=== PATIENT | female | born 1985 | race Hispanic/Latino ===

== ENCOUNTER 2021-01-27 12:39 | Emergency (ER) | payer MEDICAID ==
[2021-01-27] MEDS ORDERED: ACETAMINOPHEN 500 MG TAB PO STA (13:40)
--- NOTE | 2021-01-27 13:48 | Emergency Department Report ---
ED General Adult HPI - General Chief complaint: Vaginal Bleeding Stated complaint: MISCARRIAGE/FIBROIDS Time Seen by Provider: 01/27/21 13:22 Source: patient Mode of arrival: Ambulatory Limitations: No Limitations - History of Present Illness Initial comments: 35-year-old female patient presents with complaints of vaginal bleeding in starting last night. She states she is approximately 7 weeks and currently follows with [facility] HAT MEASURER. Patient states her beta hCG levels recently declined from 24,000-8000 in the last week. She admits to abdominal cramping and states she has passed 2 large blood clots. She is G2, . No other past medical history per patient. She denies any urinary symptoms or vaginal discharge/dyspareunia. - Related Data Previous Rx's Medication Instructions Recorded Last Taken Type Sulfamethoxazole/Trimethoprim 1 each PO BID 5 Days #10 tablet 01/27/21 Unknown Rx [Bactrim DS TAB] Allergies Allergy/AdvReac Type Severity Reaction Status Date / Time No Known Allergies Allergy Unverified 01/27/21 13:08 ED Review of Systems ROS: Stated complaint: MISCARRIAGE/FIBROIDS Other details as noted in HPI Constitutional: denies: chills, fever Respiratory: denies: cough, shortness of breath Gastrointestinal: abdominal pain. denies: nausea, vomiting, diarrhea, constipation, hematemesis, melena, hematochezia Genitourinary: abnormal menses. denies: urgency, dysuria, frequency, hematuria, discharge, dyspareunia Skin: denies: change in color Hematological/Lymphatic: denies: easy bleeding, easy bruising ED Past Medical Hx - Past Medical History Previous Medical History?: Yes Hx Hypertension: Yes Additional medical history: Miscarriage - Surgical History Past Surgical History?: No - Social History Smoking Status: Never Smoker Substance Use Type: Alcohol, Marijuana - Medications Home Medications: Home Medications Medication Instructions Recorded Confirmed Last Taken Type Sulfamethoxazole/Trimethoprim 1 each PO BID 5 Days #10 tablet 01/27/21 Unknown Rx [Bactrim DS TAB] ED Physical Exam - General Limitations: No Limitations General appearance: alert, in no apparent distress - Head Head exam: Present: atraumatic, normocephalic - Eye Eye exam: Present: normal appearance - Neck Neck exam: Present: full ROM - Respiratory Respiratory exam: Absent: respiratory distress - Cardiovascular Cardiovascular Exam: Present: regular rate - GI/Abdominal GI/Abdominal exam: Present: soft, tenderness (Suprapubic), normal bowel sounds. Absent: distended, guarding, rebound, rigid - Neurological Exam Neurological exam: Present: alert, oriented X3, normal gait - Psychiatric Psychiatric exam: Present: normal affect, normal mood - Skin Skin exam: Present: warm, dry, intact, normal color. Absent: rash, cyanosis, diaphoretic, pallor ED Course Vital Signs 01/27/21 01/27/21 01/27/21 13:10 15:50 16:03 Temperature 98.1 F 98.3 F Pulse Rate 95 H 63 Respiratory 20 12 Rate Blood Pressure 154/92 Blood Pressure 123/63 [Left] O2 Sat by Pulse 100 100 100 Oximetry ED Medical Decision Making - Lab Data Result diagrams: 01/27/21 13:37 01/27/21 13:37 Lab Results 01/27/21 01/27/21 01/27/21 Range/Units 13:37 13:37 13:37 WBC 16.0 H (4.5-11.0) K/mm3 RBC 4.62 (3.65-5.03) M/mm3 Hgb 11.5 (10.1-14.3) gm/dl Hct 35.2 (30.3-42.9) % MCV 76 L (79-97) fl MCH 25 L (28-32) pg MCHC 33 (30-34) % RDW 18.8 H (13.2-15.2) % Plt Count 319 (140-440) K/mm3 Lymph % (Auto) 11.0 L (13.4-35.0) % [place] % (Auto) 3.5 (0.0-7.3) % Eos % (Auto) 0.5 (0.0-4.3) % Baso % (Auto) 0.5 (0.0-1.8) % Lymph # (Auto) 1.8 (1.2-5.4) K/mm3 [place] # (Auto) 0.6 (0.0-0.8) K/mm3 Eos # (Auto) 0.1 (0.0-0.4) K/mm3 Baso # (Auto) 0.1 (0.0-0.1) K/mm3 Seg Neutrophils % 84.5 H (40.0-70.0) % Seg Neutrophils # 13.5 H (1.8-7.7) K/mm3 Sodium 140 (137-145) mmol/L Potassium 3.7 (3.6-5.0) mmol/L Chloride 106.0 (98-107) mmol/L Carbon Dioxide 22 (22-30) mmol/L Anion Gap 16 mmol/L BUN 9 (7-17) mg/dL Creatinine 0.5 L (0.6-1.2) mg/dL Estimated GFR > 60 ml/min BUN/Creatinine Ratio 18 % Glucose 127 H (65-100) mg/dL Calcium 9.2 (8.4-10.2) mg/dL Total Bilirubin < 0.20 (0.1-1.2) mg/dL AST 13 (5-40) units/L ALT 13 (7-56) units/L Alkaline Phosphatase 76 (35-129) units/L Total Protein 7.2 (6.3-8.2) g/dL Albumin 4.1 (3.9-5) g/dL Albumin/Globulin Ratio 1.3 % HCG, Quant 3699 H (0-4) mIU/mL Blood Type 01/27/21 Range/Units 13:37 WBC (4.5-11.0) K/mm3 RBC (3.65-5.03) M/mm3 Hgb (10.1-14.3) gm/dl Hct (30.3-42.9) % MCV (79-97) fl MCH (28-32) pg MCHC (30-34) % RDW (13.2-15.2) % Plt Count (140-440) K/mm3 Lymph % (Auto) (13.4-35.0) % [place] % (Auto) (0.0-7.3) % Eos % (Auto) (0.0-4.3) % Baso % (Auto) (0.0-1.8) % Lymph # (Auto) (1.2-5.4) K/mm3 [place] # (Auto) (0.0-0.8) K/mm3 Eos # (Auto) (0.0-0.4) K/mm3 Baso # (Auto) (0.0-0.1) K/mm3 Seg Neutrophils % (40.0-70.0) % Seg Neutrophils # (1.8-7.7) K/mm3 Sodium (137-145) mmol/L Potassium (3.6-5.0) mmol/L Chloride (98-107) mmol/L Carbon Dioxide (22-30) mmol/L Anion Gap mmol/L BUN (7-17) mg/dL Creatinine (0.6-1.2) mg/dL Estimated GFR ml/min BUN/Creatinine Ratio % Glucose (65-100) mg/dL Calcium (8.4-10.2) mg/dL Total Bilirubin (0.1-1.2) mg/dL AST (5-40) units/L ALT (7-56) units/L Alkaline Phosphatase (35-129) units/L Total Protein (6.3-8.2) g/dL Albumin (3.9-5) g/dL Albumin/Globulin Ratio % HCG, Quant (0-4) mIU/mL Blood Type A POSITIVE - Radiology Data Radiology results: report reviewed ULTRASOUND OBSTETRIC INDICATION / CLINICAL INFORMATION: bleeding, 7 weeks . Serum hCG = 3699. Clinical Gestational Age (GA) in weeks, days: 6, 4 TECHNIQUE: Transabdominal and Transvaginal. COMPARISON: None available. FINDINGS: GESTATIONAL SAC: No intrauterine gestational sac. YOLK SAC: None visualized. EMBRYO/FETUS: None visualized. UTERUS: Uterus is enlarged and heterogeneous measuring 12.7 x 8.0 x 9.6 cm. Multiple intramural fibroids are present measuring up to 5.6 cm in size. ADNEXA: Ovary not well visualized. No adnexal mass or cyst. FREE FLUID: None. ADDITIONAL FINDINGS: None. IMPRESSION: 1. No intrauterine identified. 2. Enlarged uterus containing multiple fibroids. - Medical Decision Making 35-year-old female patient presents with complaints of vaginal bleeding in starting last night. She states she is approximately 7 weeks and currently follows with [facility]. Patient states her beta hCG levels recently declined from 24,000-8000 in the last week. She admits to abdominal cramping and states she has passed 2 large blood clots. She is G2, . No other past medical history per patient. She denies any urinary symptoms or vaginal discharge/dyspareunia. Patient also reports she had an ultrasound at 5 weeks and that the was noted to be an IUP Critical care attestation.: If time is entered above; I have spent that time in minutes in the direct care of this critically ill patient, excluding procedure time. ED Disposition Clinical Impression: Miscarriage, UTI (urinary tract infection) Disposition: 01 HOME / SELF CARE / HOMELESS Is pt being admited?: No Condition: Stable Instructions: Miscarriage Additional Instructions: Please follow-up with your HAT MEASURER within 2 to 3 days Prescriptions: Sulfamethoxazole/Trimethoprim [Bactrim DS TAB] 1 each PO BID 5 Days #10 tablet Referrals: PRIMARY CARE, [Primary Care Provider] - 3-5 Days Forms: Work/School Release Form(ED)
[2021-01-27 14:16] LABS: Basophils # (Auto) 0.1 K/mm3 (0.0-0.1); Basophils % (Auto) 0.5 % (0.0-1.8); Eosinophils # (Auto) 0.1 K/mm3 (0.0-0.4); Eosinophils % (Auto) 0.5 % (0.0-4.3); Hematocrit 35.2 % (30.3-42.9); Hemoglobin 11.5 gm/dl (10.1-14.3); Lymphocytes # (Auto) 1.8 K/mm3 (1.2-5.4); Mean Corpuscular HGB Conc 33 % (30-34); Mean Corpuscular Volume 76 fl (79-97); Monocytes # (Auto) 0.6 K/mm3 (0.0-0.8); Monocytes % (Auto) 3.5 % (0.0-7.3); Platelet Count 319 K/mm3 (140-440); Red Blood Count 4.62 M/mm3 (3.65-5.03); Red Cell Distribution Width 18.8 % (13.2-15.2)
[2021-01-27 14:25] LABS: Alanine Aminotransferase 13 units/L (7-56); Albumin 4.1 g/dL (3.9-5); Blood Urea Nitrogen 9 mg/dL (7-17); Calcium 9.2 mg/dL (8.4-10.2); Hemolysis Index 2
[2021-01-27 14:31] LABS: BUN/Creatinine Ratio 18
[2021-01-27] MEDS ORDERED: ONDANSETRON 4 MG ODT TAB PO ONE (15:04)
[2021-01-27] MEDS ORDERED: MORPHINE 4 MG/1 ML INJ IM ONE (15:04)
--- NOTE | 2021-01-27 15:36 | Ultrasound Report ---
ULTRASOUND OBSTETRIC INDICATION / CLINICAL INFORMATION: bleeding, 7 weeks . Serum hCG = 3699. Clinical Gestational Age (GA) in weeks, days: 6, 4 TECHNIQUE: Transabdominal and Transvaginal. COMPARISON: None available. FINDINGS: GESTATIONAL SAC: No intrauterine gestational sac. YOLK SAC: None visualized. EMBRYO/FETUS: None visualized. UTERUS: Uterus is enlarged and heterogeneous measuring 12.7 x 8.0 x 9.6 cm. Multiple intramural fibro ids are present measuring up to 5.6 cm in size. ADNEXA: Ovary not well visualized. No adnexal mass or cyst. FREE FLUID: None. ADDITIONAL FINDINGS: None. IMPRESSION: 1. No intrauterine identified. 2. Enlarged uterus containing multiple fibroids. Signer Name: Blanco Godinez MD Signed: 01/27/2021 3:31 PM Workstation Name: [id number]
[2021-01-27] MEDS ORDERED: KETOROLAC 30 MG/1 ML INJ IV ONE (16:10)
[2021-01-27 16:23] LABS: Bilirubin,Urine NEG (Negative); Blood,Urine LG (Negative); Color,Urine Red (Yellow); Mucus,Urine 1+ /HPF
[2021-01-27 16:25] LABS: RBC,Urine > 180.0 /HPF (0.0-6.0)
[2021-01-27 17:32] VITALS: BP 123/65
== END 2021-01-27 16:45 | disposition home or self-care (01) ==
LOC: ED 12:39
DX: O03.9 Complete or unspecified spontaneous abortion without complication (principal); O16.1 Unspecified maternal hypertension, first trimester; O23.41 Unspecified infection of urinary tract in pregnancy, first trimester
CPT/HCPCS: 36415; 76801; 76817; 80053; 81001; 84702; 85025; 86900; 86901; 87086; 96372; 96374; 99284; J1885; J2270; Q0162

== ENCOUNTER 2021-01-30 13:46 | Emergency (ER) | payer MEDICAID ==
[2021-01-30 14:10] VITALS: BP 150/84
[2021-01-30] MEDS ORDERED: SODIUM CHLORIDE 0.9% 1000 ML 1,000 ML IV ONE (14:17)
[2021-01-30] MEDS ORDERED: HYDROcodone/ACETAMINOPHEN 5-325 MG TAB PO ONE (14:17)
--- NOTE | 2021-01-30 14:18 | Event Note ---
ED Screening Note ED Screening Note: RN called me to triage Pt was in rest room and "passed something"- which she flushed recently here for vag bleed in preg- us noted large fibroids tachycardia/abd pain RN took pt to fast track This initial assessment/diagnostic orders/clinical plan/treatment(s) is/are subject to change based on patients health status, clinical progression and re- assessment by fellow clinical providers in the ED. Further treatment and workup at subsequent clinical providers discretion. Patient/guardian urged not to elope from the ED as their condition may be serious if not clinically assessed and managed. Initial orders include: ro ab/retained product/fibroid/DUB RH pos on last visit SEE EMR
--- NOTE | 2021-01-30 14:46 | Emergency Department Report ---
HPI - General Chief Complaint: Vaginal Bleeding Time Seen by Provider: 01/30/21 14:16 - HPI HPI: 35-year-old female presents to the emergency department with heavy vaginal bleeding and some pelvic cramping after a recent miscarriage. Patient came in to this emergency department 3 days ago, on 01/27, with the same complaints of vaginal bleeding and pelvic cramping while at 7 weeks . The patient's beta hCG had gone from about 24,000 down to 8000. During her last visit the beta-hCG was about 3700. She had a ultrasound done at that time that did not show any intrauterine and showed fibroid disease. The patient was discharged home with the diagnosis of a miscarriage and a urinary tract infection. The patient presents today still complaining of the vaginal bleeding and pelvic cramping. She says that she is going through multiple pads per hour. She follows with [facility] TECHNICIAN. ED Past Medical Hx - Past Medical History Hx Hypertension: Yes Additional medical history: Miscarriage - Social History Smoking Status: Never Smoker Substance Use Type: Alcohol, Marijuana - Medications Home Medications: Home Medications Medication Instructions Recorded Confirmed Last Taken Type HYDROcodone/APAP 5-325 [[place] 1 each PO Q6HR PRN #8 tablet 01/30/21 Unknown Rx 5/325] Sulfamethoxazole/Trimethoprim 1 each PO BID 5 Days #10 tablet 01/30/21 Unknown Rx [Bactrim DS TAB] ED Review of Systems ROS: Stated complaint: VAGINAL BLEEDING Other details as noted in HPI Comment: All other systems reviewed and negative Constitutional: denies: chills, fever Eyes: denies: eye pain, vision change ENT: denies: ear pain, throat pain Respiratory: denies: cough, shortness of breath Cardiovascular: denies: chest pain, palpitations Gastrointestinal: denies: nausea, vomiting Genitourinary: other (pelvic cramping, heavy vaginal bleeding) Musculoskeletal: denies: back pain, arthralgia Skin: denies: rash, lesions Neurological: denies: headache, weakness Physical Exam - Physical Exam Vital Signs: Vital Signs 01/30/21 14:07 Temperature 98.4 F Pulse Rate 106 H Respiratory 16 Rate Blood Pressure 150/84 O2 Sat by Pulse 90 Oximetry Physical Exam: GENERAL: The patient is well-developed well-nourished. HENT: Normocephalic. Atraumatic. Patient has moist mucous membranes. EYES: Extraocular motions are intact. NECK: Supple. Trachea is midline. CHEST/LUNGS: Clear to auscultation. There is no respiratory distress noted. HEART/CARDIOVASCULAR: Regular. There is no tachycardia. There is no murmur. ABDOMEN: Abdomen is soft, nontender. Patient has normal bowel sounds. There is no abdominal distention. SKIN: Skin is warm and dry. NEURO: The patient is awake, alert, and oriented. The patient is cooperative. The patient has no focal neurologic deficits. Normal speech. MUSCULOSKELETAL: There is no tenderness or deformity. There is no limitation range of motion. PELVIC: Deferred ED Course Vital Signs 01/30/21 14:07 Temperature 98.4 F Pulse Rate 106 H Respiratory 16 Rate Blood Pressure 150/84 O2 Sat by Pulse 90 Oximetry - Consultations Consultation #1: 01/30/21 16:01 I spoke to the ROVING TECHNICIAN on-call, Dr. Grace. She has arranged for the patient to see her in the office tomorrow at 10:45 AM in the [facility]. She is okay with a single dose of Methergine prior to DC. ED Medical Decision Making - Lab Data Result diagrams: 01/30/21 14:34 01/30/21 14:34 Lab Results 01/30/21 01/30/21 01/30/21 Range/Units 14:34 14:34 14:34 WBC 9.2 (4.5-11.0) K/mm3 RBC 4.20 (3.65-5.03) M/mm3 Hgb 10.6 (10.1-14.3) gm/dl Hct 32.0 (30.3-42.9) % MCV 76 L (79-97) fl MCH 25 L (28-32) pg MCHC 33 (30-34) % RDW 18.7 H (13.2-15.2) % Plt Count 312 (140-440) K/mm3 Lymph % (Auto) 15.5 (13.4-35.0) % [place] % (Auto) 6.4 (0.0-7.3) % Eos % (Auto) 1.9 (0.0-4.3) % Baso % (Auto) 0.7 (0.0-1.8) % Lymph # (Auto) 1.4 (1.2-5.4) K/mm3 [place] # (Auto) 0.6 (0.0-0.8) K/mm3 Eos # (Auto) 0.2 (0.0-0.4) K/mm3 Baso # (Auto) 0.1 (0.0-0.1) K/mm3 Seg Neutrophils % 75.5 H (40.0-70.0) % Seg Neutrophils # 6.9 (1.8-7.7) K/mm3 Sodium 135 L (137-145) mmol/L Potassium 4.3 (3.6-5.0) mmol/L Chloride 100.6 (98-107) mmol/L Carbon Dioxide 27 (22-30) mmol/L Anion Gap 12 mmol/L BUN 12 (7-17) mg/dL Creatinine 0.5 L (0.6-1.2) mg/dL Estimated GFR > 60 ml/min BUN/Creatinine Ratio 24 % Glucose 108 H (65-100) mg/dL Calcium 8.5 (8.4-10.2) mg/dL HCG, Quant 1436 H (0-4) mIU/mL - Radiology Data Radiology results: report reviewed ULTRASOUND PELVIS INDICATION: vag bleed in preg. TECHNIQUE: Transabdominal. Transvaginal. Duplex Color Doppler used: Yes. COMPARISON: 01/27/2021. FINDINGS: Uterus: Present. Size: 15 x 8.4 x 9.5 cm. Endometrial complex: Not well evaluated. Mass lesions: Multiple heterogeneous lesions are again seen throughout the uterus and cervix with the largest at the cervix measuring 4.9 cm. Additional findings: None. Right Ovary -- 3.6 x 3 x 2.7 Blood flow: Normal. Cyst or mass: None. Left Ovary--nonvisualized. Urinary Bladder: Normal. Free Fluid: None. Additional Findings: None. IMPRESSION: 1. No intrauterine . 2. Limited evaluation of the uterus and endometrial stripe. Multiple fibroids are again identified with involvement of the cervix. 3. Left ovary not identified. No adnexal abnormality is identified. - Medical Decision Making This patient was here on 01/27 and was found to have a spontaneous miscarriage. She had a beta-hCG of about 3700 at that time and an ultrasound that showed no IUP and moderate to severe fibroid disease. The patient was doing better between ER visits, but last night says that she suddenly had a large amount of blood with clots come out and the patient began having the pelvic cramping again. Vital signs have been reassuring throughout her ED course including being afebrile. The patient's labs show that the beta hCG has been dropping and is now down to about 1400. Patient's hemoglobin dropped less than 1 g, down to 10.6. The rest of the labs are unremarkable. Transvaginal ultrasound does not show any IUP and once again shows fibroid disease. I spoke with the ROVING TECHNICIAN on-call who agrees with the plan for a dose of Methergine and has arranged for the patient to be seen by her in the office tomorrow, Friday, at 10:45 AM. Patient was given a prescription for pain medication. She says that she lost h er prescription for Bactrim for the previously diagnosed UTI so this was re- issued. Critical Care Time: No Critical care attestation.: If time is entered above; I have spent that time in minutes in the direct care of this critically ill patient, excluding procedure time. ED Disposition Clinical Impression: Dysfunctional uterine bleeding, Pelvic pain UTI (urinary tract infection) Qualifiers: Urinary tract infection type: acute cystitis Hematuria presence: with hematuria Qualified Code(s): N30.01 - Acute cystitis with hematuria Disposition: HOME / SELF CARE / HOMELESS Is pt being admited?: No Condition: Stable Instructions: Abnormal Uterine Bleeding, Urinary Tract Infection, Adult, Miscarriage Additional Instructions: Please follow-up with Dr. Grace tomorrow at 10:45 AM in her [place] office. You have been prescribed a medication that is sedating and therefore should not be taken prior to driving, working, and responsible for children and in no way should be mixed with alcohol of any quantity. Return to the emergency department with any worsening of your symptoms, new or concerning symptoms not addressed during this current emergency department vis it, or with any acute distress. Prescriptions: Sulfamethoxazole/Trimethoprim [Bactrim DS TAB] 1 each PO BID 5 Days #10 tablet HYDROcodone/APAP 5-325 [[place] 5/325] 1 each PO Q6HR PRN #8 tablet PRN Reason: Pain Referrals: DYLON GRACE MD [Staff Physician] - 01/31/21 10:45 am Time of Disposition: 16:12
[2021-01-30 15:09] LABS: Blood Urea Nitrogen 12 mg/dL (7-17); Calcium 8.5 mg/dL (8.4-10.2); Hemolysis Index 6
[2021-01-30 15:26] LABS: BUN/Creatinine Ratio 24
--- NOTE | 2021-01-30 15:35 | Ultrasound Report ---
ULTRASOUND PELVIS INDICATION: vag bleed in preg. TECHNIQUE: Transabdominal. Transvaginal. Duplex Color Doppler used: Yes. COMPARISON: 01/27/2021. FINDINGS: Uterus: Present. Size: 15 x 8.4 x 9.5 cm. Endometrial complex: Not well evaluated. Mass lesions: Multiple heterogeneous lesions are again seen throughout the uterus and cervix with the largest at the cervix measuring 4.9 cm. Additional findings: None. Right Ovary -- 3.6 x 3 x 2.7 Blood flow: Normal. Cyst or mass: None. Left Ovary--nonvisualized. Urinary Bladder: Normal. Free Fluid: None. Additional Findings: None. IMPRESSION: 1. No intrauterine . 2. Limited evaluation of the uterus and endometrial stripe. Multiple fibroids are again identified wi th involvement of the cervix. 3. Left ovary not identified. No adnexal abnormality is identified. Signer Name: Jonh Ahuja MD Signed: 01/30/2021 3:31 PM Workstation Name: [id number]
[2021-01-30 15:38] LABS: Basophils # (Auto) 0.1 K/mm3 (0.0-0.1); Basophils % (Auto) 0.7 % (0.0-1.8); Eosinophils # (Auto) 0.2 K/mm3 (0.0-0.4); Eosinophils % (Auto) 1.9 % (0.0-4.3); Hemoglobin 10.6 gm/dl (10.1-14.3); Lymphocytes # (Auto) 1.4 K/mm3 (1.2-5.4); Lymphocytes % (Auto) 15.5 % (13.4-35.0); Mean Corpuscular HGB Conc 33 % (30-34); Mean Corpuscular Volume 76 fl (79-97); Monocytes # (Auto) 0.6 K/mm3 (0.0-0.8); Monocytes % (Auto) 6.4 % (0.0-7.3); Platelet Count 312 K/mm3 (140-440); Red Cell Distribution Width 18.7 % (13.2-15.2)
[2021-01-30] MEDS ORDERED: METHYLERGONOVINE MALEATE 0.2 MG/ML VIAL IM ONE (15:53)
== END 2021-01-30 16:38 | disposition home or self-care (01) ==
LOC: ED 13:46
DX: N93.8 Other specified abnormal uterine and vaginal bleeding (principal); R10.2 Pelvic and perineal pain; N39.0 Urinary tract infection, site not specified; I10 Essential (primary) hypertension; F12.90 Cannabis use, unspecified, uncomplicated; F10.20 Alcohol dependence, uncomplicated
CPT/HCPCS: 36415; 76801; 76817; 80048; 84702; 85025; 96360; 96372; 99284; J2210; J7030

== ENCOUNTER 2021-02-20 12:55 | Observation (INO) | payer MEDICAID ==
--- NOTE | 2021-02-20 13:12 | Emergency Department Report ---
<PO FARRIS - Last Filed: 02/20/21 16:03> ED Female HPI - General Chief complaint: Vaginal Bleeding Stated complaint: VAG BLEEDING Time Seen by Provider: 02/20/21 13:04 Source: patient Mode of arrival: Ambulatory Limitations: No Limitations - History of Present Illness Initial comments: There is a pleasant 35-year-old female who presents the emergency department chief complaint of persistent vaginal bleeding after having a miscarriage last month. She reports she was about 5 or 6 weeks . She was seen in the ER on January 27 and had an ultrasound that showed no intrauterine and her hCG was 3699. She then returned 3 days later on 01/30 and her hCG had dropped to 1436. She states she had negative ultrasounds of both visits but is still having bleeding and is concerned that there may be something still inside of her uterus. Her blood type was A+ and no RhoGam was needed either visit. - Related Data Previous Rx's Medication Instructions Recorded Last Taken Type HYDROcodone/APAP 5-325 [[place] 1 each PO Q6HR PRN #8 tablet 01/30/21 Unknown Rx 5/325] Sulfamethoxazole/Trimethoprim 1 each PO BID 5 Days #10 tablet 01/30/21 Unknown Rx [Bactrim DS TAB] Ibuprofen [Motrin 800 MG tab] 800 mg PO Q8HR #30 tablet 02/20/21 Unknown Rx Methylergonovine [Methergine] 0.2 mg PO Q8HR #3 tablet 02/20/21 Unknown Rx Allergies Allergy/AdvReac Type Severity Reaction Status Date / Time latex Allergy Rash Verified 02/20/21 13:00 ED Review of Systems Comment: All other systems reviewed and negative Constitutional: denies: chills, fever Eyes: denies: eye pain, eye discharge, vision change ENT: denies: ear pain, throat pain Respiratory: denies: cough, shortness of breath, wheezing Cardiovascular: denies: chest pain, palpitations Endocrine: no symptoms reported Gastrointestinal: as per HPI, abdominal pain, nausea. denies: diarrhea Genitourinary: abnormal menses. denies: urgency, dysuria, discharge Musculoskeletal: denies: back pain, joint swelling, arthralgia Skin: denies: rash, lesions Neurological: denies: headache, weakness, paresthesias Psychiatric: denies: anxiety, depression Hematological/Lymphatic: denies: easy bleeding, easy bruising ED Past Medical Hx - Past Medical History Hx Hypertension: Yes Additional medical history: Miscarriage - Social History Smoking Status: Never Smoker Substance Use Type: Alcohol, Marijuana - Medications Home Medications: Home Medications Medication Instructions Recorded Confirmed Last Taken Type HYDROcodone/APAP 5-325 [[place] 1 each PO Q6HR PRN #8 tablet 01/30/21 Unknown Rx 5/325] Sulfamethoxazole/Trimethoprim 1 each PO BID 5 Days #10 tablet 01/30/21 Unknown Rx [Bactrim DS TAB] Ibuprofen [Motrin 800 MG tab] 800 mg PO Q8HR #30 tablet 02/20/21 Unknown Rx Methylergonovine [Methergine] 0.2 mg PO Q8HR #3 tablet 02/20/21 Unknown Rx ED Physical Exam - General Limitations: No Limitations General appearance: alert, in no apparent distress - Head Head exam: Present: atraumatic, normocephalic - Eye Eye exam: Present: normal appearance, PERRL, EOMI Pupils: Present: normal accommodation - ENT ENT exam: Present: normal exam, normal orophraynx, mucous membranes moist - Neck Neck exam: Present: normal inspection, full ROM. Absent: tenderness, meningismus - Respiratory Respiratory exam: Present: normal lung sounds bilaterally. Absent: respiratory distress, wheezes, rales, rhonchi, stridor - Cardiovascular Cardiovascular Exam: Present: regular rate, normal rhythm, normal heart sounds. Absent: systolic murmur, diastolic murmur, rubs, gallop - GI/Abdominal GI/Abdominal exam: Present: soft, tenderness (Mild tenderness to suprapubic abdomen no rebound or guarding), normal bowel sounds. Absent: distended, guarding, rebound - Extremities Exam Extremities exam: Present: normal inspection, full ROM, normal capillary refill. Absent: tenderness, calf tenderness - Back Exam Back exam: Present: normal inspection, full ROM. Absent: tenderness, CVA tenderness (R), CVA tenderness (L) - Neurological Exam Neurological exam: Present: alert, oriented X3, normal gait - Psychiatric Psychiatric exam: Present: normal affect, normal mood - Skin Skin exam: Present: warm, dry, intact, normal color. Absent: rash ED Course - Reevaluation(s) Reevaluation #1: 02/20/21 13:12 Patient nontoxic in no acute distress. Her hCG appears to be trending down appropriately from 36 99-14 36. I will recheck this today. Her hemoglobin is also trending down at 11.5-10.6 over 3 days. We will check labs and repeat ultrasound to ensure there are no retained parts of conception. At this time patient is hemodynamically stable in no acute distress. Reevaluation #2: 02/20/21 16:03 Discussed with JENELLE Cavanaugh who will follow the patient, please see her note for dispo. - Consultations Consultation #1: 02/20/21 16:03 Discussed with my DOLLY PUSHER on-call and they will contact the physician who reviewed the case and come see the patient in the ER. ED Medical Decision Making - Lab Data Result diagrams: 02/20/21 14:08 02/20/21 14:08 Lab Results 02/20/21 02/20/21 Range/Units 14:08 14:08 WBC 7.2 (4.5-11.0) K/mm3 RBC 3.86 (3.65-5.03) M/mm3 Hgb 9.2 L (10.1-14.3) gm/dl Hct 27.9 L (30.3-42.9) % MCV 72 L (79-97) fl MCH 24 L (28-32) pg MCHC 33 (30-34) % RDW 18.4 H (13.2-15.2) % Plt Count 487 H (140-440) K/mm3 Lymph % (Auto) 31.8 (13.4-35.0) % [place] % (Auto) 10.2 H (0.0-7.3) % Eos % (Auto) 3.0 (0.0-4.3) % Baso % (Auto) 0.8 (0.0-1.8) % Lymph # (Auto) 2.3 (1.2-5.4) K/mm3 [place] # (Auto) 0.7 (0.0-0.8) K/mm3 Eos # (Auto) 0.2 (0.0-0.4) K/mm3 Baso # (Auto) 0.1 (0.0-0.1) K/mm3 Seg Neutrophils % 54.2 (40.0-70.0) % Seg Neutrophils # 3.9 (1.8-7.7) K/mm3 Sodium 136 L (137-145) mmol/L Potassium 3.7 (3.6-5.0) mmol/L Chloride 99.8 (98-107) mmol/L Carbon Dioxide 24 (22-30) mmol/L Anion Gap 16 mmol/L BUN 14 (7-17) mg/dL Creatinine 0.6 (0.6-1.2) mg/dL Estimated GFR > 60 ml/min BUN/Creatinine Ratio 23 % Glucose 86 (65-100) mg/dL Calcium 8.9 (8.4-10.2) mg/dL Lab Results 02/20/21 02/20/21 02/20/21 Range/Units 14:08 14:08 14:08 WBC 7.2 (4.5-11.0) K/mm3 RBC 3.86 (3.65-5.03) M/mm3 Hgb 9.2 L (10.1-14.3) gm/dl Hct 27.9 L (30.3-42.9) % MCV 72 L (79-97) fl MCH 24 L (28-32) pg MCHC 33 (30-34) % RDW 18.4 H (13.2-15.2) % Plt Count 487 H (140-440) K/mm3 Lymph % (Auto) 31.8 (13.4-35.0) % [place] % (Auto) 10.2 H (0.0-7.3) % Eos % (Auto) 3.0 (0.0-4.3) % Baso % (Auto) 0.8 (0.0-1.8) % Lymph # (Auto) 2.3 (1.2-5.4) K/mm3 [place] # (Auto) 0.7 (0.0-0.8) K/mm3 Eos # (Auto) 0.2 (0.0-0.4) K/mm3 Baso # (Auto) 0.1 (0.0-0.1) K/mm3 Seg Neutrophils % 54.2 (40.0-70.0) % Seg Neutrophils # 3.9 (1.8-7.7) K/mm3 Sodium 136 L (137-145) mmol/L Potassium 3.7 (3.6-5.0) mmol/L Chloride 99.8 (98-107) mmol/L Carbon Dioxide 24 (22-30) mmol/L Anion Gap 16 mmol/L BUN 14 (7-17) mg/dL Creatinine 0.6 (0.6-1.2) mg/dL Estimated GFR > 60 ml/min BUN/Creatinine Ratio 23 % Glucose 86 (65-100) mg/dL Calcium 8.9 (8.4-10.2) mg/dL HCG, Quant 30.44 H (0-4) mIU/mL - Radiology Data Radiology results: report reviewed, image reviewed Ordering Physician: JENELLE MCNAIR Date of Service: 02/20/21 Procedure(s): US pelvic complete Accession Number(s): [id number] cc: JENELLE MCNAIR Pelvic Ultrasound HISTORY: recent misscarriage, still heavy bleeding and pain. TECHNIQUE: Grayscale and color Doppler imaging was performed of the pelvis using transabdominal and transvaginal technique.. COMPARISON: 01/30/2021. FINDINGS: The uterus measures 12.1 x 8 x 8.1 cm. Multiple intramural fibroids are again noted and appear not significantly changed with the largest measuring up to 3.2 x 3.2 x 2.5 cm within the posterior uterine fundus. The endometrium is thickened measuring 1.7 cm, particularly within the lower uterine segment. In this region there is a questionable focal area measuring 1.5 x 2.4 x 1.3 cm which demonstrates internal vascularity. The right ovary is not visualized. The left ovary measures 3.4 x 1.8 x 2.2 cm. No evidence of discrete ovarian lesion. Vascular flow is demonstrated to the left ovary. IMPRESSION: Thickened heterogenous appearance of the endometrium, particularly the lower uterine segment which contains a questionable focal area measuring up to 2.4 cm. This demonstrates some internal vascularity. The appearance may reflect some degree of retained products of conception. Multiple fibroids are again noted. Signer Name: Venkatesh Bruce MD Signed: 02/20/2021 2:43 PM Workstation Name: [id number] Transcribed By: JOSE Dictated By: VENKATESH BRUCE MD Electronically Authenticated By: VENKATESH BRUCE MD Signed Date/Time: 02/20/21 1443 - Medical Decision Making Patient nontoxic no acute stress. Vital signs stable. hCG is steadily decreased during the 3 visits and is now only 30. Hemoglobin is also slightly decreased and is 9. She does not any signs of symptomatic anemia. DOLLY PUSHER was consulted for the ultrasound findings of potential retained present conception will see the patient in the ER and determine treatment plan. Patient was agreeable this. - Differential Diagnosis Retained proximal of conception, ectopic , incomplete ED Disposition Clinical Impression: Microcytic anemia, Vaginal bleeding, Retained products of conception Disposition: HOME / SELF CARE / HOMELESS Condition: Stable <TANISHA KUHN - Last Filed: 02/20/21 21:15> ED Review of Systems ROS: Stated complaint: VAG BLEEDING Other details as noted in HPI ED Course Vital Signs 02/20/21 02/20/21 02/20/21 13:01 19:45 19:50 Temperature 97.9 F 98.5 F Pulse Rate 115 H 88 85 Respiratory 16 16 16 Rate Blood Pressure 156/88 140/78 149/80 O2 Sat by Pulse 100 100 100 Oximetry 02/20/21 02/20/21 02/20/21 19:55 20:00 20:15 Temperature Pulse Rate 97 H 92 H 85 Respiratory 18 17 18 Rate Blood Pressure 141/76 143/77 147/64 O2 Sat by Pulse 100 100 100 Oximetry 02/20/21 02/20/21 20:30 20:45 Temperature 97.5 F L Pulse Rate 92 H 92 H Respiratory 18 18 Rate Blood Pressure 157/74 147/69 O2 Sat by Pulse 100 100 Oximetry - Consultations Consultation #1: 02/20/21 16:[address] Mcintosh, DOLLY PUSHER, she evaluated patient at bedside and plans to take patient for D&C ED Medical Decision Making - Lab Data Result diagrams: 02/20/21 14:08 02/20/21 14:08 - Medical Decision Making Patient signed out by Po Farris, pending DOLLY PUSHER evaluation. Dr. Mcintosh, DOLLY PUSHER evaluated patient at bedside and discussed options with patient and they decided on D&C. Patient was taken to the OR by Dr. cMintosh and she accepted and resumed care of patient, please see her note for disposition and continued care. Critical care attestation.: If time is entered above; I have spent that time in minutes in the direct care of this critically ill patient, excluding procedure time. ED Disposition Is pt being admited?: No Does the pt Need Aspirin: No
[2021-02-20 14:26] LABS: Basophils # (Auto) 0.1 K/mm3 (0.0-0.1); Basophils % (Auto) 0.8 % (0.0-1.8); Eosinophils # (Auto) 0.2 K/mm3 (0.0-0.4); Hematocrit 27.9 % (30.3-42.9); Hemoglobin 9.2 gm/dl (10.1-14.3); Lymphocytes # (Auto) 2.3 K/mm3 (1.2-5.4); Lymphocytes % (Auto) 31.8 % (13.4-35.0); Mean Corpuscular HGB Conc 33 % (30-34); Mean Corpuscular Volume 72 fl (79-97); Monocytes # (Auto) 0.7 K/mm3 (0.0-0.8); Monocytes % (Auto) 10.2 % (0.0-7.3); Platelet Count 487 K/mm3 (140-440); Red Blood Count 3.86 M/mm3 (3.65-5.03); Red Cell Distribution Width 18.4 % (13.2-15.2)
[2021-02-20 14:40] LABS: Blood Urea Nitrogen 14 mg/dL (7-17); Calcium 8.9 mg/dL (8.4-10.2); Hemolysis Index 0
[2021-02-20 14:45] LABS: BUN/Creatinine Ratio 23
--- NOTE | 2021-02-20 14:48 | Ultrasound Report ---
Pelvic Ultrasound HISTORY: recent misscarriage, still heavy bleeding and pain. TECHNIQUE: Grayscale and color Doppler imaging was performed of the pelvis using transabdominal and transvaginal technique.. COMPARISON: 01/30/2021. FINDINGS: The uterus measures 12.1 x 8 x 8.1 cm. Multiple intramural fibroids are again noted and appear not si gnificantly changed with the largest measuring up to 3.2 x 3.2 x 2.5 cm within the posterior uterine fundus. The endometrium is thickened measuring 1.7 cm, particularly within the lower uterine segment. In this region there is a questionable focal area measuring 1.5 x 2.4 x 1.3 cm which demonstrates internal v ascularity. The right ovary is not visualized. The left ovary measures 3.4 x 1.8 x 2.2 cm. No evidence of discret e ovarian lesion. Vascular flow is demonstrated to the left ovary. IMPRESSION: Thickened heterogenous appearance of the endometrium, particularly the lower uterine segment which co ntains a questionable focal area measuring up to 2.4 cm. This demonstrates some internal vascularity. The appearance may reflect some degree of retained products of conception. Multiple fibroids are again noted. Signer Name: Venkatesh Ye MD Signed: 02/20/2021 2:43 PM Workstation Name: [id number]
--- NOTE | 2021-02-20 17:33 | History and Physical Report ---
History of Present Illness Date of examination: 02/20/21 Chief complaint: vaginal bleeding History of present illness: Patient is a presenting following miscarriage with vaginal bleeding. States she was diagnosed with a miscarriage in the emergency department approximately one month ago and has not stopped bleeding since that time. Notes currently using 5-6 pads per day with clots. Also notes cramping abdominal pain and well as vomiting due to the pain. Denies any fevers, chills, chest pain, or SOB. Of note patient states she has not followed up with a provider since the miscarriage stating " it hasn't aligned with my schedule," and als noting she currently does not have any transportation. Past History Past Medical History: no pertinent history, hypertension Past Surgical History: no surgical history Family/Genetic History: none Social history: smoking, other (marijuana use ) - Obstetrical History : 2 Para: 1 Medications and Allergies Allergies Allergy/AdvReac Type Severity Reaction Status Date / Time latex Allergy Rash Verified 02/20/21 13:00 Home Medications Medication Instructions Recorded Confirmed Last Taken Type HYDROcodone/APAP 5-325 [[place] 1 each PO Q6HR PRN #8 tablet 01/30/21 Unknown Rx 5/325] Sulfamethoxazole/Trimethoprim 1 each PO BID 5 Days #10 tablet 01/30/21 Unknown Rx [Bactrim DS TAB] Review of Systems All systems: negative Gastrointestinal: abdominal pain, nausea, vomiting Genitourinary: vaginal bleeding - Vital Signs Vital signs: Vital Signs Temp Pulse Resp BP Pulse Ox 97.9 F 115 H 16 156/88 100 02/20/21 13:01 02/20/21 13:01 02/20/21 13:01 02/20/21 13:01 02/20/21 13:01 Temp Pulse Resp BP Pulse Ox 97.9 F 115 H 16 156/88 100 02/20/21 13:01 02/20/21 13:01 02/20/21 13:01 02/20/21 13:01 02/20/21 13:01 - Physical Exam Cardiovascular: Regular rate Lungs: Positive: Clear to auscultation Abdomen: Positive: normal appearance, soft Genitourinary (Female): Positive: normal external genitalia, normal perenium Vulva: both: normal Vagina: Positive: other (dark blood noted in the vagina with large clot obscurin g vision ) Cervix: Positive: other (dilated with clot present at the os; no gross lesions ) Uterus: Positive: other (14 week sized uterus with irregular contour, nontender ) Extremities: Positive: normal Results Result Diagrams: 02/20/21 14:08 02/20/21 14:08 Abnormal lab results 02/20/21 02/20/21 02/20/21 Range/Units 14:08 14:08 14:08 Hgb 9.2 L (10.1-14.3) gm/dl Hct 27.9 L (30.3-42.9) % MCV 72 L (79-97) fl MCH 24 L (28-32) pg RDW 18.4 H (13.2-15.2) % Plt Count 487 H (140-440) K/mm3 [place] % (Auto) 10.2 H (0.0-7.3) % Sodium 136 L (137-145) mmol/L HCG, Quant 30.44 H (0-4) mIU/mL All other labs normal. Ultrasound: report reviewed, image reviewed Assessment and Plan - Patient Problems (1) Anemia due to acute blood loss Status: Acute (2) Retained products of conception Status: Acute Plan to address problem: Discussed management options with patient. Recommend surgical management with dilation and curettage Risks and benefits of procedure reviewed with patient in detail Procedure and blood consents signed and on patient's chart (3) Vaginal bleeding Status: Acute Plan to address problem: To OR for D&C
[2021-02-20] MEDS ORDERED: DOXYCYCLINE 100 MG CAP PO ONE (17:47)
--- NOTE | 2021-02-20 18:25 | Anesthesia Day of Surgery ---
Anesthesia Day of Surgery - Day of Surgery Patient Examined: Yes Patient H&P Reviewed: Yes Patient is NPO: Yes
--- NOTE | 2021-02-20 18:25 | Anesthesia Consultation ---
Anesthesia Consult and Med Hx Date of service: 02/20/21 - Airway Anesthetic Teeth Evaluation: Crowns ROM Head & Neck: Adequate Mental/Hyoid Distance: Adequate Mallampati Class: Class II Intubation Access Assessment: Good - Pre-Operative Health Status ASA Pre-Surgery Classification: ASA2, Emergency Proposed Anesthetic Plan: General - Pulmonary Hx Smoking: Yes Hx Asthma: Yes - Cardiovascular System Hx Hypertension: Yes - Hematic Hx Anemia: Yes - Other Systems Hx Substance Use: Yes (MJ)
[2021-02-20] MEDS ORDERED: ONDANSETRON 4 MG/2 ML INJ IV PRN (18:26)
[2021-02-20] MEDS ORDERED: HYDROmorphone 1 MG/1 ML INJ IV PRN ×3 (18:26→19:45)
[2021-02-20] MEDS ORDERED: LIDOCAINE MPF (2%) 20 MG/1 ML VIAL 5 ML ONE (18:31)
[2021-02-20] MEDS ORDERED: fentaNYL 100 MCG/2 ML INJ ONE (18:32)
[2021-02-20] MEDS ORDERED: propofoL 200 MG/20 ML VIAL IV ONE (18:32)
[2021-02-20] MEDS ORDERED: SODIUM CHLORIDE 0.9% IRR 1,500 ML BOTTLE IR ONE (18:59)
[2021-02-20] MEDS ORDERED: dexAMETHasone 20 MG/5 ML VIAL ONE (19:06)
[2021-02-20] MEDS ORDERED: SILVER NITRATE APPLICATOR 1 EA TP ONE (19:08)
[2021-02-20] MEDS ORDERED: METHYLERGONOVINE MALEATE 0.2 MG/ML VIAL IM ONE ×2 (19:08→19:09)
[2021-02-20] MEDS ORDERED: miSOPROStol 200 MCG TAB ONE (19:29)
[2021-02-20] MEDS ORDERED: miSOPROStol 200 MCG TAB PR ONE (19:31)
[2021-02-20] MEDS ORDERED: traMADol 50 MG TAB PO PRN (19:45)
[2021-02-20] MEDS ORDERED: ACETAMINOPHEN 325 MG TAB PO PRN (19:45)
--- NOTE | 2021-02-20 19:56 | Post Operative Note ---
Pre-op diagnosis: incomplete , retained products of conception Post-op diagnosis: same Findings: 14 week sized fibroid uterus; Cervix dilated approximately 1-2 cm with clot at the os Procedure: examination under anesthesia, dilation and curettage Anesthesia: SAFIA Surgeon: FELECIA AMOR Estimated blood loss: other (300 ml) Pathology: list (uterine contents) Specimen disposition: to lab Condition: stable Disposition: observation
[2021-02-20] MEDS ORDERED: IBUPROFEN 800 MG TAB PO SCH (20:00)
--- NOTE | 2021-02-20 20:22 | Post Anesthesia Evaluation ---
- Post Anesthesia Evaluation Patient Participated: Yes Airway Patent: Yes Stable Respiratory Function: Yes Nausea/Vomiting: No Temp > 96.8F: Yes Pain Manageable: Yes Adequeate Hydration: Yes Anesthesia Complications: No Block Receding Appropriately: Not Applicable Patient on Ventilator: No
[2021-02-20] MEDS ORDERED: LACTATED RINGERS 1,000 ML ONE (21:22)
[2021-02-21] MEDS ORDERED: METHYLERGONOVINE 0.2 MG TABLET PO ONE (03:00)
[2021-02-21] MEDS ORDERED: DOXYCYCLINE 100 MG CAP ONE (05:49)
[2021-02-21] MEDS ORDERED: METHYLERGONOVINE 0.2 MG TABLET ONE (05:58)
[2021-02-21] MEDS ORDERED: DOXYCYCLINE 100 MG CAP PO ONE ×2 (06:15→11:00)
[2021-02-21 07:38] LABS: Basophils % (Auto) 0.1 % (0.0-1.8); Hematocrit 26.5 % (30.3-42.9); Hemoglobin 8.2 gm/dl (10.1-14.3); Lymphocytes # (Auto) 0.8 K/mm3 (1.2-5.4); Lymphocytes % (Auto) 10.5 % (13.4-35.0); Mean Corpuscular HGB Conc 31 % (30-34); Mean Corpuscular Volume 73 fl (79-97); Monocytes # (Auto) 0.4 K/mm3 (0.0-0.8); Monocytes % (Auto) 5.5 % (0.0-7.3); Platelet Count 461 K/mm3 (140-440); Red Blood Count 3.64 M/mm3 (3.65-5.03); Red Cell Distribution Width 18.2 % (13.2-15.2)
--- NOTE | 2021-02-21 10:48 | Progress Note ---
Assessment and Plan POC d/w pt. Questions encouraged. Pt denies having any questions, complaints, concerns, and needs at this time. Pt verbalizes understanding and agrees to POC. Pt reports desires for control. PP FU d/w pt. Anticipate stable discharge home. Dr. Darby made aware and POC discussed. MD to review VS and advise discharge planning. - Patient Problems (1) Microcytic anemia Current Visit: Yes Status: Acute (2) Retained products of conception Current Visit: Yes Status: Acute (3) Vaginal bleeding Current Visit: Yes Status: Acute (4) Anemia due to acute blood loss Current Visit: No Status: Acute Subjective - Subjective Date of service: 02/21/21 Principal diagnosis: s/p D&C, SAB Patient reports: pain well controlled Objective - Vital Signs Latest vital signs: Vital Signs Temp Pulse Pulse Resp BP BP Pulse Ox 02/21/21 10:09 16 02/21/21 08:45 97.9 F 95 H 18 135/77 100 02/21/21 08:37 100 02/21/21 04:01 98.5 F 94 H 18 129/71 100 02/21/21 00:20 97.9 F 89 20 138/69 98 02/20/21 21:00 97.5 F L 90 90 18 147/69 100 02/20/21 20:45 97.5 F L 92 H 18 147/69 100 02/20/21 20:30 92 H 18 157/74 100 02/20/21 20:15 85 18 147/64 100 02/20/21 20:00 92 H 17 143/77 100 02/20/21 19:55 97 H 18 141/76 100 02/20/21 19:50 85 16 149/80 100 02/20/21 19:45 98.5 F 88 16 140/78 100 02/20/21 13:01 97.9 F 115 H 16 156/88 100 Intake and Output 02/20/21 02/21/21 02/21/21 23:59 07:59 15:59 Intake Total 1040 600 120 Output Total 200 401 Balance 840 199 120 Intake: IV 200 Oral 360 600 120 Intake, Free Water 480 Output: Urine 200 400 Void 400 Pad Count 1 Other: Total, Intake Amount 360 360 120 Total, Output Amount 400 Weight 159 lb 15.831 oz Patient Weight 02/21/21 23:59 Weight 159 lb 15.831 oz - Exam Breasts: Present: normal Cardiovascular: Present: Regular rate Lungs: Present: Normal air movement Abdomen: Present: normal appearance, soft. Absent: distention, tenderness, guarding, mass Extremities: Present: normal Comments: scant spotting noted on yanelis-pad - Labs Labs: Abnormal lab results 02/20/21 02/20/21 02/20/21 Range/Units 14:08 14:08 14:08 RBC (3.65-5.03) M/mm3 Hgb 9.2 L (10.1-14.3) gm/dl Hct 27.9 L (30.3-42.9) % MCV 72 L (79-97) fl MCH 24 L (28-32) pg RDW 18.4 H (13.2-15.2) % Plt Count 487 H (140-440) K/mm3 Lymph % (Auto) (13.4-35.0) % [place] % (Auto) 10.2 H (0.0-7.3) % Lymph # (Auto) (1.2-5.4) K/mm3 Seg Neutrophils % (40.0-70.0) % Sodium 136 L (137-145) mmol/L HCG, Quant 30.44 H (0-4) mIU/mL 02/21/21 Range/Units 07:02 RBC 3.64 L (3.65-5.03) M/mm3 Hgb 8.2 L (10.1-14.3) gm/dl Hct 26.5 L (30.3-42.9) % MCV 73 L (79-97) fl MCH 23 L (28-32) pg RDW 18.2 H (13.2-15.2) % Plt Count 461 H (140-440) K/mm3 Lymph % (Auto) 10.5 L (13.4-35.0) % [place] % (Auto) (0.0-7.3) % Lymph # (Auto) 0.8 L (1.2-5.4) K/mm3 Seg Neutrophils % 83.9 H (40.0-70.0) % Sodium (137-145) mmol/L HCG, Quant (0-4) mIU/mL
--- NOTE | 2021-02-21 11:00 | Discharge Summary ---
Providers - Providers Date of Admission: 02/20/21 19:45 Date of discharge: 02/21/21 Attending physician: FELECIA AMOR MD Primary care physician: PUTTY TINTER MAKER Hospitalization Reason for admission: other (incomplete ) Procedure: other (D7C) Procedure details: see op note Condition at discharge: Good Disposition: 01 HOME / SELF CARE / HOMELESS Plan - Discharge Medications Prescriptions: Methylergonovine [Methergine] 0.2 mg PO Q8HR #3 tablet Ibuprofen [Motrin 800 MG tab] 800 mg PO Q8HR #30 tablet - Provider Discharge Summary Additional instructions: [] Smoking cessation referral if applicable(refer to patient education folder for contact #) [] Refer to [facility]'s [facility] Booklet Call your doctor immediately for: * Fever > 100.5 * Heavy vaginal bleeding ( >1 pad per hour) * Severe persistent headache * Shortness of breath * Reddened, hot, painful area to leg or breast * Drainage or odor from incision. * Keep incision clean and dry at all times and follow doctor's instructions regarding bathing/showering - Follow up plan Follow up: PRIMARY CARE, [Primary Care Provider] - 7 Days Forms: [facility] Discharge Summary, Work/School Release Form
[2021-02-21 13:16] VITALS: BP 120/71
--- NOTE | 2021-02-25 23:54 | Operative Report ---
Operative Report Operative Report: Procedure Note Procedure: Dilation and curettage Date of Procedure: 02/20/2021 Pre-operative Diagnosis: retained products of conception, incomplete AB Post-operative Diagnosis: same Surgeon: Franca Mcintosh MD Anesthesia: GETA Procedure Details Consent was obtained after explaining the risks and benefits of the procedure as documented. Patient was taken to the OR. The patient was then placed in dorsal lithotomy position, and prepped and draped in the usual sterile manner. The examination under anesthesia revealed an enlarged uterus 12-14 weeks size with irregular contour. A sterile speculum was then inserted into the patient's vagina. A single tooth tenaculum was then placed on the anterior lip of the cervix. The cervix was then dilated to 23 [place] size dilator and a size 8 mm suction catheter was then inserted. The contents of the uterus were emptied under electrical suction. A sharp curettage was then performed with gritty texture noted. A final pass of the suction catheter was then done. Bleeding noted and an additional pass of suction made. BLeeding continued and Methergine 0.2 mg given. After bimanual massage, hemostasis achieved. The instruments were removed from the patient's vagina and excellent hemostasis was noted. Cytotec 800 mcg was then placed per rectum The patient tolerated the procedure well and was brought to the recovery room in stable condition. Findings: Exam under anesthesia: 14 week sized fibroid uterus; Cervix dilated approximately 1-2 cm with clot at the os Estimated Blood Loss: 300 ml Drains: None Specimens: Product of conception Implants: None Complications: None; patient tolerated the procedure well. Disposition: PACU - hemodynamically stable. Condition: stable
== END 2021-02-21 20:44 | disposition home or self-care (01) ==
LOC: ED 12:55 → OB 19:45
PROVIDERS: ADMIT Student in an Organized Health Care Education/Training Program; ATTEND Student in an Organized Health Care Education/Training Program
DX: O03.4 Incomplete spontaneous abortion without complication (principal); D62 Acute posthemorrhagic anemia; N93.9 Abnormal uterine and vaginal bleeding, unspecified; I10 Essential (primary) hypertension; F12.90 Cannabis use, unspecified, uncomplicated; Z98.890 Other specified postprocedural states; Z79.899 Other long term (current) drug therapy
CPT/HCPCS: 36415; 59812; 76830; 76856; 80048; 84702; 85025; 86850; 86900; 86901; 88305; 96374; 99284; G0378; J1100; J1170; J2210; J2405; J2704; J3010